=== PATIENT | female | born 2000 | race Caucasian/White ===

== ENCOUNTER → 2023-02-18 11:10 | Outpatient (BNVA) | payer OTHER, SELFPAY | PROVIDERS: Visit Provider Physician Assistant | DX: Z13.89 Encounter for screening for other disorder (principal) | CPT/HCPCS: 99204 ==

== ENCOUNTER → 2023-08-01 11:19 | Outpatient (BNVA) | payer OTHER, SELFPAY | DX: Z13.89 Encounter for screening for other disorder (principal) | CPT/HCPCS: 99211 ==